=== PATIENT | female | born 1985 | race Two or more races ===

== ENCOUNTER 2019-01-30 14:38 | Emergency (ER) | payer BC ==
[~2019-01-30] VITALS: Ht 160 cm; Wt 57.2 kg
[2019-01-30 14:42] VITALS: BP 129/57; PULSE 104; RESP 16; Ht 160 cm; Wt 57.2 kg
[2019-01-30] MEDS ORDERED: IBUP-1561 PO (15:24)
[2019-01-30] MEDS ORDERED: D-ME473S2 PO (15:24)
--- NOTE | 2019-01-30 15:26 | ERD ---
ER Documentation Chief Complaint Chief Complaint fever , cough , sore throat x 3 days HPI 33-year-old female presents with fever and cough and sore throat for last 3 days. Is a dry cough. She denies any vomiting, abdominal pain, diarrhea. She has right ear pain as well. ROS All systems reviewed and are negative except as per history of present illness. Medications Home Meds Active Scripts Dextromethorphan Hb-Promethazine Hcl* (Promethazine DM* Syrup) 473 Ml Syrup, 5 ML PO Q6 PRN for COUGH for 5 Days, ML Prov:DAHLIA GONZALEZ MD 01/30/19 Ibuprofen* (Motrin*) 400 Mg Tab, 400 MG PO Q6, #15 TAB Prov:DAHLIA GONZALEZ MD 01/30/19 PMhx/Soc Medical and Surgical Hx: pt denies Medical Hx, pt denies Surgical Hx Smoking Status: Never smoker FmHx Family History: No diabetes, No coronary disease, No other Physical Exam Vitals Vital Signs Date Temp Pulse Resp B/P (MAP) Pulse Ox O2 O2 Flow FiO2 Time Delivery Rate 01/30/19 100.2 104 16 129/57 99 14:42 (81) Physical Exam Const: No acute distress Head: Atraumatic Eyes: Normal Conjunctiva ENT: Normal External Ears, Nose and Mouth. Neck: Full range of motion. No meningismus. Resp: Clear to auscultation bilaterally. Dry cough without rales, wheezing or retractions. Cardio: Regular rate and rhythm, no murmurs Abd: Soft, non tender, non distended. Normal bowel sounds Skin: No petechiae or rashes Back: No midline or flank tenderness Ext: No cyanosis, or edema Neur: Awake and alert Psych: Normal Mood and Affect Procedures/MDM Patient presents with URI symptoms for last 3 days. She is essentially normal exam. She has no signs of hypoxemia, rest distress, airway obstruction, additional concerning signs or symptoms. She will be treated with ibuprofen, Promethazine DM, primary care follow-up and return precautions. The patient was stable with no new complaints during the ER course. Clinically, there is no current evidence to suggest meningitis, sepsis, acute abdomen, pneumonia, stroke, acute coronary syndrome, pulmonary embolism, aortic dissection or any other emergent condition appearing to require further evaluation or ho spitalization. Patient counseled regarding my diagnostic impression and care plan. Prior to discharge all questions answered. Pt agrees with treatment plan and understands strict return precautions. Pt is instructed to follow up with primary care provider within 24-48 hours. Precautionary instructions provided including instructions to return to the ER if not improving or for any worsening or changing symptoms or concerns. Disclaimer: Inadvertent spelling and grammatical errors are likely due to EHR/dictation software use and do not reflect on the overall quality of patient care. Also, please note that the electronic time recorded on this note does not necessarily reflect the actual time of the patient encounter. Departure Diagnosis: Primary Impression: Upper respiratory infection URI type: unspecified URI Qualified Codes: J06.9 - Acute upper respiratory infection, unspecified Condition: Stable Patient Instructions: Uri, Viral, No Abx (Adult) Additional Instructions: Likely viral illness should resolve the next 3 to 5 days. Recheck for new worsening symptoms or primary care doctor. DAHLIA GONZALEZ MD January 30, 2019 15:26
== END 2019-01-31 12:54 | disposition home or self-care (01) ==
LOC: E/R 14:38
DX: J06.9 Acute upper respiratory infection, unspecified (principal)
CPT/HCPCS: 99283